=== PATIENT | male | born 1935 | race Caucasian/White ===

== ENCOUNTER 2017-07-06 19:00 | Emergency (ER) | payer MEDICARE ==
[~2017-07-06] VITALS: Ht 175.3 cm; Wt 75.4 kg
[~2017-07-06 19:00] MED LIST: AMLO2.5T PO; DEXL60CA2 PO; FENO48TA5 PO; MEMA5TAB PO; METO25TA35 PO; SILD100T PO; SOTA80TA PO
[2017-07-06 19:29] LABS: BASOPHILS # (AUTO) 0.02 x10^3/uL (0-0.1); BASOPHILS % (AUTO) 0 % (0-1); EOSINOPHILS # (AUTO) 0.17 x10^3/uL (0-0.4); EOSINOPHILS % (AUTO) 2 % (1-7); LYMPHOCYTES # (AUTO) 1.53 x10^3/uL (1-3.4); LYMPHOCYTES % (AUTO) 16 % (22-44); MD NO; MEAN CORPUSCULAR HEMOGLOBIN 29.2 pg (27.5-34.5); MEAN CORPUSCULAR HGB CONC 33.5 g/dL (33.2-36.2); MEAN CORPUSCULAR VOLUME 87.3 fL (81-97); MEAN PLATELET VOLUME 8.4 fL (7.4-10.4); MONOCYTES # (AUTO) 0.75 x10^3/uL (0.2-0.8); MONOCYTES % (AUTO) 8 % (2-9); NEUTROPHILS # (AUTO) 6.87 x10^3/uL (1.8-6.8); NEUTROPHILS % (AUTO) 74 % (42-75); PLATELET COUNT 282 x10^3/uL (130-400); RED BLOOD COUNT 6.08 x10^6/uL (4.38-5.82); RED CELL DISTRIBUTION WIDTH 15.7 % (9.4-14.8)
[2017-07-06 19:41] LABS: ALBUMIN 4.4 g/dL (3.4-5.0); ANION GAP 5 mmol/L (5-15); CALCIUM 8.9 mg/dL (8.5-10.1); CHLORIDE 108 mmol/L (98-107)
[2017-07-06 19:44] LABS: ALANINE AMINOTRANSFERASE 24 U/L (12-78); ALKALINE PHOSPHATASE 55 U/L (45-117); CREATININE 1.34 mg/dL (0.7-1.3)
[2017-07-06] MEDS ORDERED: OMEG1000 PO (20:00)
[2017-07-06] MEDS ORDERED: METO25TA91 PO (20:00)
[2017-07-06] MEDS ORDERED: CHOL2000 PO (20:00)
[2017-07-06] MEDS ORDERED: LANS30CA PO (20:00)
[2017-07-06 20:19] LABS: MICROSCOPIC NOT IND
[2017-07-06 20:26] LABS: CULTURE INDICATED? NO
[2017-07-06] MEDS ORDERED: OMNIPAQUE 350 MG/ML, 100ML BOTTLE ONE (20:36)
[2017-07-06] MEDS ORDERED: ONDANSETRON ODT 4 MG ONE ×2 (21:12→21:15)
[2017-07-06] MEDS ORDERED: DICYCLOMINE 10 MG/ML, 2ML ONE (21:12)
[2017-07-06 21:25] VITALS: BP 162/98
[2017-07-06] MEDS ORDERED: DICYCLOMINE 10 MG/ML, 2ML IM ONE (21:30)
[2017-07-06] MEDS ORDERED: ONDANSETRON ODT 4 MG PO ONE (21:30)
== END 2017-07-06 22:07 | disposition home or self-care (01) ==
LOC: ED 22:04
DX: R10.84 Generalized abdominal pain (principal); I10 Essential (primary) hypertension; E78.00 Pure hypercholesterolemia, unspecified; Z90.49 Acquired absence of other specified parts of digestive tract; Z95.0 Presence of cardiac pacemaker; Z95.2 Presence of prosthetic heart valve
CPT/HCPCS: 36415; 74021; 74177; 80053; 81003; 83690; 85025; 96372; 99285; J0500; Q0162; Q9967

== ENCOUNTER 2018-04-29 16:53 | Emergency (ER) | payer MEDICARE ==
[~2018-04-29] VITALS: Ht 175.3 cm; Wt 72.4 kg
[~2018-04-29 16:53] MED LIST changes: -AMLO2.5T PO; +AMLO2.5T5 PO; +CHOL2000 PO; +LANS30CA PO; +METO25TA91 PO; +OMEG1000 PO
[2018-04-29] MEDS ORDERED: SODIUM CHLORIDE FLUSH 10ML SYR IVF ONE (17:30)
--- NOTE | 2018-04-29 17:52 | NUR ---
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
[2018-04-29 18:04] LABS: CHLORIDE 107 mmol/L (98-107)
[2018-04-29 18:05] LABS: INTERNATIONAL NORMALIZED RATIO 2.16 (0.93-1.1); PROTHROMBIN TIME 22.2 Seconds (9.6-11.5)
[2018-04-29 18:08] LABS: MEAN CORPUSCULAR HEMOGLOBIN 28.6 pg (27.5-34.5); MEAN CORPUSCULAR HGB CONC 33.3 g/dL (33.2-36.2); MEAN CORPUSCULAR VOLUME 85.7 fL (81-97); MEAN PLATELET VOLUME 8.9 fL (7.4-10.4); PLATELET COUNT 257 x10^3/uL (130-400); RED BLOOD COUNT 6.33 x10^6/uL (4.38-5.82); RED CELL DISTRIBUTION WIDTH 16.4 % (9.4-14.8)
[2018-04-29 18:14] LABS: ALANINE AMINOTRANSFERASE 29 U/L (12-78); ALBUMIN 4.3 g/dL (3.4-5.0); ALKALINE PHOSPHATASE 47 U/L (45-117); ANION GAP 5 mmol/L (5-15); CALCIUM 8.6 mg/dL (8.5-10.1); CREATININE 1.27 mg/dL (0.7-1.3); TOTAL PROTEIN 7.5 g/dL (6.4-8.2)
--- NOTE | 2018-04-29 18:30 | NUR ---
pt presents to ED with c/o generalized abd pain and emesis x 1 today, sx onset this am. pt a&o, resps even and unlabored. awaiting ct, labs and ua. at bedside. bp and spo2 monitors in place .
--- NOTE | 2018-04-29 18:35 | NUR ---
PT INSTRUCTED TO PROVIDE CLEAN CATCH UA, URINAL AT BEDSIDE.
[2018-04-29 18:36] LABS: BASOPHILS % (AUTO) 0 % (0-1); EOSINOPHILS # (AUTO) 0.07 x10^3/uL (0-0.4); EOSINOPHILS % (AUTO) 1 % (1-7); LYMPHOCYTES % (AUTO) 7 % (22-44); MD SCAN; MONOCYTES # (AUTO) 0.89 x10^3/uL (0.2-0.8); MONOCYTES % (AUTO) 6 % (2-9); NEUTROPHILS # (AUTO) 12.96 x10^3/uL (1.8-6.8); NEUTROPHILS % (AUTO) 86 % (42-75)
--- NOTE | 2018-04-29 19:05 | NUR ---
PT IN CT AT THIS TIME.
--- NOTE | 2018-04-29 19:07 | NUR ---
PT BACK TO ROOM FROM CT.
[2018-04-29 19:14] LABS: MICROSCOPIC NOT IND
[2018-04-29 19:19] LABS: CULTURE INDICATED? NO
--- NOTE | 2018-04-29 19:19 | NUR ---
PT HAS BILATERAL ABD PAIN 7/10 AT THIS TIME. PT REQUESTING PAIN MED. MD MARTINEZ NOTIFIED.
[2018-04-29] MEDS ORDERED: OMNIPAQUE 350 MG/ML, 100ML BOTTLE ONE (19:22)
[2018-04-29] MEDS ORDERED: ONDANSETRON 2MG/ML, 2ML ONE (19:24)
[2018-04-29] MEDS ORDERED: HYDROmorphone 1 MG/ML, 1ML ONE (19:24)
[2018-04-29] MEDS ORDERED: ONDANSETRON 2MG/ML, 2ML IVPush ONE (19:30)
[2018-04-29] MEDS ORDERED: HYDROmorphone 2 MG/ML, 1ML IVPush PRN (19:30)
[2018-04-29] MEDS ORDERED: HYDROmorphone 2 MG/ML, 1ML ONE (19:41)
--- NOTE | 2018-04-29 19:48 | NUR ---
PT MEDICATED PER EMAR. PT TOLERATED WELL. PT AOX4. RESPS EVEN AND UNLABORED.
[2018-04-29 20:26] VITALS: BP 143/85
== END 2018-04-29 20:29 | disposition home or self-care (01) ==
LOC: ED 20:23
DX: R10.84 Generalized abdominal pain (principal); R11.10 Vomiting, unspecified; I10 Essential (primary) hypertension; E78.00 Pure hypercholesterolemia, unspecified; Z90.89 Acquired absence of other organs; Z95.0 Presence of cardiac pacemaker; Z88.5 Allergy status to narcotic agent; Z95.2 Presence of prosthetic heart valve
CPT/HCPCS: 36415; 74177; 80053; 81003; 83690; 85025; 85610; 96374; 96375; 99284; J1170; J2405; Q9967

== ENCOUNTER → 2018-08-24 | Outpatient (CLI) | payer MEDICARE | END | disposition home or self-care (01) | LOC: RAD 16:13 | PROVIDERS: ATTEND Internal Medicine | DX: G31.9 Degenerative disease of nervous system, unspecified (principal); S09.90XA Unspecified injury of head, initial encounter; X58.XXXA Exposure to other specified factors, initial encounter; Y93.89 Activity, other specified; Y92.89 Other specified places as the place of occurrence of the external cause; Y99.8 Other external cause status | CPT/HCPCS: 70450 ==

== ENCOUNTER 2019-12-05 13:15 | Emergency (ER) | payer MEDICARE ==
[~2019-12-05] VITALS: Ht 175.3 cm; Wt 67.8 kg
[~2019-12-05 13:15] MED LIST changes: +FENO48TA10 PO; -FENO48TA5 PO
--- NOTE | 2019-12-05 13:23 | NUR ---
personal service workers: Spoke with MD Alfaro regarding patients symptoms and an onset of less than 1 hour and does not want a code neuro called at this time. disassembler made aware.
[2019-12-05] MEDS ORDERED: SODIUM CHLORIDE FLUSH 10ML SYR IVF ONE (14:00)
[2019-12-05 14:28] LABS: BASOPHILS # (AUTO) 0.03 x10^3/uL (0-0.1); BASOPHILS % (AUTO) 0 % (0-1); EOSINOPHILS # (AUTO) 0.18 x10^3/uL (0-0.4); EOSINOPHILS % (AUTO) 3 % (1-7); LYMPHOCYTES # (AUTO) 1.38 x10^3/uL (1-3.4); LYMPHOCYTES % (AUTO) 19 % (22-44); MD NO; MEAN CORPUSCULAR HEMOGLOBIN 28.7 pg (27.5-34.5); MEAN CORPUSCULAR VOLUME 86.8 fL (81-97); MEAN PLATELET VOLUME 9.1 fL (7.4-10.4); MONOCYTES # (AUTO) 0.65 x10^3/uL (0.2-0.8); MONOCYTES % (AUTO) 9 % (2-9); NEUTROPHILS # (AUTO) 4.91 x10^3/uL (1.8-6.8); NEUTROPHILS % (AUTO) 69 % (42-75); PLATELET COUNT 255 x10^3/uL (130-400); RED BLOOD COUNT 6.11 x10^6/uL (4.38-5.82)
[2019-12-05 14:31] LABS: INTERNATIONAL NORMALIZED RATIO 3.72 (0.93-1.1); PROTHROMBIN TIME 38.8 Seconds (9.6-11.5)
[2019-12-05 14:33] LABS: ALBUMIN 4.3 g/dL (3.4-5.0); ANION GAP 4 mmol/L (5-15); CALCIUM 8.8 mg/dL (8.5-10.1); CHLORIDE 111 mmol/L (98-107)
[2019-12-05 14:37] LABS: ALANINE AMINOTRANSFERASE 18 U/L (12-78); ALKALINE PHOSPHATASE 53 U/L (45-117); BILIRUBIN,TOTAL 0.8 mg/dL (0.2-1.0); CREATININE 1.31 mg/dL (0.7-1.3); TOTAL PROTEIN 7.7 g/dL (6.4-8.2)
--- NOTE | 2019-12-05 14:57 | NUR ---
break rn: pt to CT at this time.
[2019-12-05] MEDS ORDERED: OMNIPAQUE 350 MG/ML, 75ML BOTTLE ONE (15:12)
[2019-12-05 15:51] VITALS: BP 120/81
[2019-12-05] MEDS ORDERED: ASPIRIN 81 MG TABLET CHEW ONE (16:30)
[2019-12-05] MEDS ORDERED: ASPIRIN 81 MG TABLET CHEW PO ONE (16:30)
== END 2019-12-05 16:56 | disposition home or self-care (01) ==
LOC: ED 14:19
DX: I66.01 Occlusion and stenosis of right middle cerebral artery (principal); I65.21 Occlusion and stenosis of right carotid artery; R41.82 Altered mental status, unspecified; R00.1 Bradycardia, unspecified; I10 Essential (primary) hypertension; Z87.891 Personal history of nicotine dependence
CPT/HCPCS: 36415; 70450; 70496; 70498; 80053; 85025; 85610; 93005; 99285; Q9967

== ENCOUNTER 2020-03-29 06:18 | Day surgery (SDC) | payer MEDICARE ==
[~2020-03-29] VITALS: Ht 175.3 cm; Wt 72.9 kg
[~2020-03-29 06:18] MED LIST changes: +CEPH-376 PO; +ERGO500017 PO; +ESOM40CA PO; +FINA5TAB4 PO; +HYDR-3240 PO; +LATA7.5D EACHEYE; +MAGNESIUM PO; +OXYB5TAB10 PO; +TAMS-11 PO; +TESTOSTERONE; +UBID100C41 PO; +WARF2.5T32 PO
[2020-03-29 06:38] VITALS: BP 132/83
[2020-03-29] MEDS ORDERED: LOVENOX SQ (06:54)
[2020-03-29] MEDS ORDERED: CHLORHEXIDINE 15 ML UDC MM ONE (07:00)
[2020-03-29] MEDS ORDERED: LACTATED RINGERS 1,000 ML IV SCH (07:00)
[2020-03-29 07:28] LABS: INTERNATIONAL NORMALIZED RATIO 1.72 (0.93-1.1); PROTHROMBIN TIME 18.1 Seconds (9.6-11.5)
[2020-03-29] MEDS ORDERED: BUPIVACAINE/PF 0.5% ONE (08:21)
[2020-03-29] MEDS ORDERED: DEXAMETHASONE 4 MG/ML, 1ML ONE (08:33)
[2020-03-29] MEDS ORDERED: FENTANYL PF 100 MCG/2ML ONE ×2 (08:34→09:22)
[2020-03-29] MEDS ORDERED: PROPOFOL 10 MG/ML, 20ML ONE (08:57)
[2020-03-29] MEDS ORDERED: ROCURONIUM 10MG/ML,5ML ONE (08:57)
[2020-03-29] MEDS ORDERED: NEOSTIGMINE 1 MG/ML, 10ML ONE (08:57)
[2020-03-29] MEDS ORDERED: ONDANSETRON 2MG/ML, 2ML ONE (08:57)
[2020-03-29] MEDS ORDERED: SUCCINYLCHOLINE 20 MG/ML, 10ML ONE (08:57)
[2020-03-29] MEDS ORDERED: CEFAZOLIN 1,000 MG ONE (08:57)
[2020-03-29] MEDS ORDERED: GLYCOPYRROLATE 0.2MG/1ML, 5ML ONE (08:57)
[2020-03-29] MEDS ORDERED: OXYcodone 5 MG/5 ML ORAL.SOL UDC PO PRN (09:00)
[2020-03-29] MEDS ORDERED: hydrALAzine 20 MG/ML, 1ML IV PRN (09:00)
[2020-03-29] MEDS ORDERED: LABETALOL 5MG/ML, 20ML IV PRN (09:00)
[2020-03-29] MEDS ORDERED: PROMETHAZINE 25 MG/ML, 1ML IV PRN (09:00)
[2020-03-29] MEDS ORDERED: KETOROLAC 30 MG/1 ML IV PRN (09:00)
[2020-03-29] MEDS ORDERED: ACETAMINOPHEN 325 MG TABLET PO PRN (09:00)
[2020-03-29] MEDS ORDERED: MEPERIDINE/PF 25MG/0.5ML IVPush PRN (09:00)
[2020-03-29] MEDS ORDERED: DIAZEPAM 5 MG/ML, 2ML IVPush PRN (09:00)
[2020-03-29] MEDS ORDERED: ALBUTEROL SULFATE 2.5 MG/3 ML NPPB PRN (09:00)
[2020-03-29] MEDS ORDERED: HYDROmorphone 2 MG/ML, 1ML IVPush PRN (09:00)
[2020-03-29] MEDS: FENTANYL PF 100 MCG/2ML IV PRN ×2 (09:27→09:33)
[2020-03-29] MEDS ORDERED: HYDROmorphone 1 MG/ML, 1ML INJ ONE (09:33)
[2020-03-29] MEDS ORDERED: ACETAMINOPHEN 325 MG TABLET ONE ×2 (09:33)
== END 2020-03-29 11:30 | disposition home or self-care (01) ==
LOC: OUT 06:18
PROVIDERS: ATTEND Orthopaedic Surgery
DX: S80.11XA Contusion of right lower leg, initial encounter (principal); D68.32 Hemorrhagic disorder due to extrinsic circulating anticoagulants; I10 Essential (primary) hypertension; I48.91 Unspecified atrial fibrillation; E78.00 Pure hypercholesterolemia, unspecified; M19.90 Unspecified osteoarthritis, unspecified site; G47.33 Obstructive sleep apnea (adult) (pediatric); X58.XXXA Exposure to other specified factors, initial encounter; Y93.89 Activity, other specified; Y92.89 Other specified places as the place of occurrence of the external cause; Y99.8 Other external cause status; Z79.01 Long term (current) use of anticoagulants; Z79.899 Other long term (current) drug therapy; Z88.5 Allergy status to narcotic agent; Z88.8 Allergy status to other drugs, medicaments and biological substances; Z72.89 Other problems related to lifestyle; Z87.891 Personal history of nicotine dependence; Z98.890 Other specified postprocedural states; Z79.2 Long term (current) use of antibiotics; Z86.73 Personal history of transient ischemic attack (TIA), and cerebral infarction without residual deficits; Z20.828 Contact with and (suspected) exposure to other viral communicable diseases; Z95.0 Presence of cardiac pacemaker
CPT/HCPCS: 27603; 36415; 85610; 87070; 87075; 87205; 93005; J0690; J1100; J1170; J2405; J2704; J3010; J7120; U0003; J2710; J0330